=== PATIENT | male | born 1955 | race Caucasian/White ===

== ENCOUNTER 2016-12-08 13:30 | Emergency (ER) | payer MEDICARE, OTHER ==
[~2016-12-08] VITALS: Ht 180.3 cm; Wt 102.0 kg
--- NOTE | ~2016-12-08 | US85 ---
[facility] A Service [facility] RADIOLOGY TEXT RESULTS PATIENT: CHAIM FROST LOCATION: [place] : 51 UNIT #: [id number] AGE: [address]: Kylie Mosley MD SEX: M ORDER DR: [id number] [facility] [address] [place], [place] [address] [id number] E MR#: [id number] Acc #: [id number] NAME: CHAIM FROST : 1955 SEX: M STUDY DATE/TIME: 12/08/2016 16:49 UNIT: [place] ROOM: STUDY DESCRIPTION: [facility] [employer] or [facility] Attending Physician: Kylie Mosley M.D. Ordering Physician: Kylie Mosley M.D. Primary Care Physician: Bayron Coughlin M.D. MEDICAL IMAGING REPORT This report is preliminary unless electronic signature is present EXAM Left lower extremity DVT study dated 12/08/2016. COMPARISON Bilateral lower extremity DVT study dated 01/14/2016. Negative study. HISTORY Left leg pain for 9 days. TECHNIQUE Structural paz-scale analysis, color-Doppler flow analysis, and waveform analysis with compression and augmentation of the left lower extremity deep veins were performed as per the protocol. FINDINGS The examination is negative. There is no evidence of left lower extremity deep venous thrombus from the groin to the lower calf. Visualized greater saphenous vein is also patent. IMPRESSION Negative examination. No evidence of left lower extremity deep venous thrombosis. Dictated by... Mamie Drake M.D. THIS IS AN ELECTRONICALLY VERIFIED REPORT Mamie Drake M.D. at 12/09/2016 3:04 PM CPR/tmw TD: 12/09/2016 09:36 [facility] A Service [facility] RADIOLOGY TEXT RESULTS PATIENT: CHAIM FROST LOCATION: [place] : 51 UNIT #: [id number] AGE: [address]: Kylie Mosley MD SEX: M ORDER DR: JOB #: [id number] MEDICAL IMAGING REPORT Page 1 of 1 COPY
--- NOTE | ~2016-12-08 | CR126 ---
[facility] A Service of [facility] RADIOLOGY TEXT RESULTS PATIENT: CHAIM FROST LOCATION: [facility] : 51 UNIT #: [id number] AGE: [address]: Kylie Mosley MD SEX: M ORDER DR: [id number] [facility] [address] [place], [place] [address] [id number] E MR#: [id number] Acc #: [id number] NAME: CHAIM FROST : 1955 SEX: M STUDY DATE/TIME: 12/08/2016 15:59 UNIT: [facility] ROOM: STUDY DESCRIPTION: CR Foot Complete Min 3 View Lt Attending Physician: Kylie Mosley M.D. Ordering Physician: Umer Adkins M.D. Primary Care Physician: Bayron Coughlin M.D. MEDICAL IMAGING REPORT This report is preliminary unless electronic signature is present EXAM Left foot INDICATION Left foot pain after falling in a hole last week. Medial ankle swelling. FINDINGS Three views of the left foot were obtained. No fracture is visible. The bones are normal. IMPRESSION Normal left foot. Dictated by... Jefferson Choe M.D. THIS IS AN ELECTRONICALLY VERIFIED REPORT Jefferson Choe M.D. at 12/09/2016 8:03 AM KAITLYN/daina TD: 12/09/2016 07:53 JOB #: [id number] MEDICAL IMAGING REPORT Page 1 of 1 COPY
--- NOTE | ~2016-12-08 | CR20 ---
[facility] A Service of [facility] & [facility] RADIOLOGY TEXT RESULTS PATIENT: CHAIM FROST LOCATION: [facility] : 51 UNIT #: [id number] AGE: [address]: Kylie Mosley MD SEX: M ORDER DR: [id number] [facility] [address] [place], [place] [address] [id number] E MR#: [id number] Acc #: [id number] NAME: CHAIM FROST : 1955 SEX: M STUDY DATE/TIME: 12/08/2016 16:02 UNIT: [facility] ROOM: STUDY DESCRIPTION: CR Ankle Min 3 Views Lt Attending Physician: Kylie Mosley M.D. Ordering Physician: Umer Adkins M.D. Primary Care Physician: Bayron Coughlin M.D. MEDICAL IMAGING REPORT This report is preliminary unless electronic signature is present EXAM Left ankle HISTORY Medial ankle pain after falling into a hole 1 week ago. TECHNIQUE Three views of the left ankle were obtained. FINDINGS AP, lateral, and oblique projections of the ankle show satisfactory integrity of the joint mortise with a smooth articular surface. There is no identifiable fracture, dislocation, or radiopaque foreign body. IMPRESSION Normal ankle. Dictated by... Milo Leong M.D. THIS IS AN ELECTRONICALLY VERIFIED REPORT Milo Leong M.D. at 12/09/2016 4:55 PM MASTER/diana TD: 12/09/2016 07:26 JOB #: [id number] MEDICAL IMAGING REPORT Page 1 of 1 COPY
[~2016-12-08 13:30] MED LIST: AMLODIPINE BESYL5 MG PO; ASPIRIN PO; ASPIRIN81 M2 PO; ATENOLOL PO; BUMETANIDE2 M1 PO; CARBIDOPA-LEVO1 TAB PO; CELEXA PO; CLARITIN10 M1 PO; CLONIDINE PO; DEPAKOTE PO; DIAZEPAM PO; DILANTIN PO; DIVALPROEX SOD500 M1 PO; DYMISTA NASAL S23 GM NS; ESCITALOPRAM OX10 MG PO; FISH OIL 1,0001 CAP PO; FLONASE 0.05% N16 G1 INH; FOLIC ACID1 MG PO; HYDROCODON-ACE1 EAC4 PO; IPRAT-ALBUT 0.5-3 ML NEB; KLONOPIN1 MG PO; LEVAQUIN750 MG PO; LEVOTHROID137 MCG PO; LOPID600 MG PO; LOPRESSOR PO; NICOTINE TRANSD14 MG EXT; OXYGEN INH; PANTOPRAZOLE SO40 MG PO; PERCOCET5/325 PO; PREDNISONE PO; RISPERDAL0.5 M1 PO; RISPERDAL1 M1 PO; SEROQUEL PO; SYNTHROID PO; TERBINAFINE (L250 M1 PO; XOPENEX1.25 MG/3 NEB; ZITHROMAX PO
== END 2016-12-08 18:16 | disposition home or self-care (01) ==
LOC: CED 13:30
DX: L03.116 Cellulitis of left lower limb (principal); J44.9 Chronic obstructive pulmonary disease, unspecified; F17.200 Nicotine dependence, unspecified, uncomplicated; Z88.0 Allergy status to penicillin; Z88.5 Allergy status to narcotic agent; Z88.8 Allergy status to other drugs, medicaments and biological substances
CPT/HCPCS: 73610; 73630; 93971; 99284